=== PATIENT | female | born 1955 | race Caucasian/White ===

== ENCOUNTER 2019-05-05 14:10 | Emergency (ER) | payer MEDICARE, OTHER ==
[~2019-05-05] VITALS: Ht 154.9 cm; Wt 84.1 kg
[2019-05-05] MEDS ORDERED: NS 1,000 ML IV ONE (14:30)
[2019-05-05] MEDS ORDERED: ZOFR8TAB24 PO (15:15)
[2019-05-05] MEDS ORDERED: PREG50CA PO (15:15)
[2019-05-05] MEDS ORDERED: ANIMCHW9 PO (15:15)
[2019-05-05] MEDS ORDERED: DICY10AM PO (15:15)
[2019-05-05] MEDS ORDERED: TIZA2CAP PO (15:15)
[2019-05-05] MEDS ORDERED: CALC600T66 PO (15:15)
[2019-05-05] MEDS ORDERED: DILA2TAB6 PO (15:15)
[2019-05-05] MEDS ORDERED: VITA500079 PO (15:15)
[2019-05-05] MEDS ORDERED: LOMO2.5T PO (15:15)
[2019-05-05] MEDS ORDERED: [UNRECOGNIZED DRUG - REMARK] PO (15:15)
[2019-05-05] MEDS ORDERED: TRAM1CAP17 PO (15:15)
[2019-05-05] MEDS ORDERED: GLUC500T PO (15:15)
[2019-05-05] MEDS ORDERED: CREO3600 PO (15:15)
[2019-05-05] MEDS ORDERED: CYMB60CA3 PO (15:15)
--- NOTE | 2019-05-05 15:37 | REP ---
Clinical: Port placement . Comparison: None . Findings: The mediastinum and cardiac silhouette are stable and within normal limits for portable technique. Lzzyak-[id number]-[id number] identified with tip in the SVC. The lung rae are clear without acute consolidation, effusion, or pneumothorax. Skeletal structures are intact. Impression: No acute cardiopulmonary process appreciated. [id number] with tip in the SVC. Electronically Signed by Luis Rivera MD 05/05/2019 03:27 P
[2019-05-05 16:13] LABS: BASO # 0.1 10^3/uL (0.0-0.2); BASO % 0.6 % (0.0-1.0); EOS # 0.2 10^3/uL (0.0-0.5); EOS % 0.9 % (0.0-3.0); HEMOGLOBIN 10.2 g/dl (12.0-15.5); LYMPH # 2.2 10^3/uL (1.5-5.0); LYMPH % 9.1 % (24.0-44.0); MEAN CORPUSCULAR HEMOGLOBIN 29.1 pg (27.0-33.0); MEAN CORPUSCULAR HGB CONC 31.9 g/dl (32.0-36.5); MEAN CORPUSCULAR VOLUME 91.4 fl (80.0-96.0); MONO % 12.9 % (0.0-5.0); NEUTROPHILS % 75.5 % (36.0-66.0); PLATELET COUNT, AUTOMATED 337 10^3/uL (150-450); WHITE BLOOD COUNT 23.8 10^3/uL (4.0-10.0)
[2019-05-05 16:16] LABS: MONO # 3.1 10^3/uL (0.0-0.8)
[2019-05-05 16:24] LABS: INR 1.18; PROTHROMBIN TIME 14.7 SECONDS (11.8-14.0)
[2019-05-05 16:25] LABS: PARTIAL THROMBOPLASTIN TIME 26.5 SECONDS (25.0-38.4)
[2019-05-05 16:43] LABS: BILIRUBIN,DIRECT 0.1 MG/DL (0.0-0.2); BILIRUBIN,TOTAL 0.2 MG/DL (0.2-1.0); TOTAL PROTEIN 5.8 GM/DL (6.4-8.2)
--- NOTE | 2019-05-05 17:41 | REPVR ---
PROCEDURE INFORMATION: Exam: US Duplex Left Upper Extremity Veins, Limited Exam date and time: 05/05/2019 5:36 PM Age: 63 years old Clinical indication: Edema, localized; Upper extremity, left; Additional info: Swelling h/o clot TECHNIQUE: Imaging protocol: Real-time Duplex ultrasound of the Left Upper Extremity with 2-D mitchell scale, color Doppler flow and spectral waveform analysis with image documentation. Limited exam focused on the left upper extremity veins. COMPARISON: No relevant prior studies available. FINDINGS: Left deep veins: Unremarkable. Axillary and paired brachial veins are patent throughout without thrombus. Normal Doppler waveforms. Normal compressibility and/or augmentation response. Visualized internal jugular and subclavian veins are patent. Left superficial veins: Unremarkable. Visualized cephalic and basilic veins are patent without thrombus. Soft tissues: Unremarkable. IMPRESSION: No acute findings. No evidence of deep vein thrombosis. Electronically signed by: Diaz Goodman On 05/05/2019 17:41:28 PM
[2019-05-05 18:05] VITALS: BP 130/60
--- NOTE | 2019-05-07 20:34 | ECGEPIP ---
[facility] - ED Test Date: 2019-05-05 Pat Name: SUSAN SUHLTZ Department: Room: - Gender: Female Real Estate Officer: jairon : 1955 Requested By: Carmina Shaw Order Number: [id number] Reading MD: Carmina Shaw Measurements Intervals [place] Rate: 79 P: 14 CO: 154 QRS: 42 QRSD: 97 T: 35 QT: 347 QTc: 399 Interpretive Statements SINUS RHYTHM NO PRIOR Electronically Signed on 05-07-2019 20:34:20 EST by Carmina Shaw
== END 2019-05-05 18:12 | disposition left against medical advice (07) ==
LOC: M ED 14:10
DX: K92.2 Gastrointestinal hemorrhage, unspecified (principal); K92.1 Melena; C25.9 Malignant neoplasm of pancreas, unspecified; E11.9 Type 2 diabetes mellitus without complications; G47.30 Sleep apnea, unspecified; G89.29 Other chronic pain; M54.9 Dorsalgia, unspecified; Z92.21 Personal history of antineoplastic chemotherapy; Z86.718 Personal history of other venous thrombosis and embolism; Z98.84 Bariatric surgery status; Z53.21 Procedure and treatment not carried out due to patient leaving prior to being seen by health care provider; Z95.828 Presence of other vascular implants and grafts; Z79.84 Long term (current) use of oral hypoglycemic drugs; Z79.899 Other long term (current) drug therapy